=== PATIENT | female | born 1950 | race Caucasian/White ===

== ENCOUNTER 2021-11-11 18:26 | Emergency (ER) | payer MEDICARE, BC ==
[2021-11-11 19:02] LABS: HEMOGLOBIN 13.1 gm/dl (12.3-15.3); RED BLOOD COUNT 4.48 M/UL (4.00-5.10); WHITE BLOOD COUNT 8.4 K/UL (4.5-11.0)
[2021-11-11 19:17] LABS: BUN/CREATININE RATIO 21 (0-10)
[2021-11-11] MEDS ORDERED: CARAFATE 1 GM TA1 GM PO (21:37)
[2021-11-11] MEDS ORDERED: PROTONIX40 MG PO (21:37)
== END 2021-11-11 21:48 | disposition home or self-care (01) ==
LOC: ER1 18:26
PROVIDERS: Physician Assistant Medical
DX: R10.12 Left upper quadrant pain (principal); R11.2 Nausea with vomiting, unspecified; E11.9 Type 2 diabetes mellitus without complications; E78.5 Hyperlipidemia, unspecified; Z90.49 Acquired absence of other specified parts of digestive tract; Z87.19 Personal history of other diseases of the digestive system; Z51.81 Encounter for therapeutic drug level monitoring
CPT/HCPCS: 71045; 80053; 81001; 82550; 82553; 83690; 84484; 85025; 85610; 87086; 93005; 96374; 99284; C9113; Q9967

== ENCOUNTER → 2021-12-17 | Outpatient (CLI) | payer MEDICARE, BC ==
[~2021-12-17] MED LIST: CARAFATE 1 GM TA1 GM PO; PROTONIX40 MG PO
== END ==
LOC: KOH-I 14:17
DX: M54.50 Low back pain, unspecified (principal); M47.816 Spondylosis without myelopathy or radiculopathy, lumbar region
CPT/HCPCS: 72100

== ENCOUNTER → 2022-01-03 | Outpatient (CLI) | payer MEDICARE, BC | LOC: US 09:45 → MRI 11:00 | DX: M54.50 Low back pain, unspecified (principal); M51.36 Other intervertebral disc degeneration, lumbar region; M48.061 Spinal stenosis, lumbar region without neurogenic claudication; M48.07 Spinal stenosis, lumbosacral region; E04.2 Nontoxic multinodular goiter | CPT/HCPCS: 72148; 76536 ==